=== PATIENT | female | born 1980 | race Caucasian/White ===

== ENCOUNTER 2016-09-02 16:37 | Emergency (ER) | payer MEDICAID ==
[2016-09-02 17:46] VITALS: BP 203/109
[2016-09-02] MEDS ORDERED: CLONIDINE HCL 0.1 MG TABLET PO ONE (17:52)
[2016-09-02] MEDS ORDERED: ACETAMINOPHEN 325 MG TABLET PO ONE (17:52)
--- NOTE | 2016-09-02 17:52 | ER Document Report ---
ED Medical Screen (RME) - General Stated Complaint: LIGHTHEADED,BLURRED VISION Time seen by provider: 17:50 Mode of Arrival: Wheelchair Information source: Patient Notes: 36-year-old female presents to ED for elevated blood pressure lightheadedness blurred vision numbness to hands and feet and left shoulder blade pain. She states this started this afternoon. She has a history of elevated blood pressure but has not started any kind of medication at this time. She states she has a appointment next week for her blood pressure. Hysterectomy. Discussed symptoms with Dr. Polanco will give 0.1 of clonidine and get blood work. I have greeted and performed a rapid initial assessment of this patient. A comprehensive ED assessment and evaluation of the patient, analysis of test results and completion of medical decision making process will be conducted by an additional ED providers. TRAVEL OUTSIDE OF THE [place] IN LAST 30 DAYS: No - Related Data Allergies/Adverse Reactions: acetaminophen [From Darvocet-N] Allergy (Verified 09/02/16 17:50) hydrocodone [From Vicodin] Allergy (Verified 09/02/16 17:50) propoxyphene [From Darvocet-N] Allergy (Verified 09/02/16 17:50) Past Medical History - Past Medical History Cardiac Medical History: Reports: Hx Hypertension Pulmonary Medical History: Reports: Hx Asthma Musculoskeltal Medical History: Reports Hx Fibromyalgia Past Surgical History: Reports: Hx Cholecystectomy, Hx Hysterectomy - Immunizations Hx Diphtheria, Pertussis, Tetanus Vaccination: No Physical Exam - Vital signs Vitals: Temp Pulse Resp BP Pulse Ox 99.5 F 84 16 203/109 H 99 09/02/16 17:45 09/02/16 17:45 09/02/16 17:45 09/02/16 17:45 09/02/16 17:45 Course - Vital Signs Vital signs: Temp Pulse Resp BP Pulse Ox 99.5 F 84 16 203/109 H 99 09/02/16 17:45 09/02/16 17:45 09/02/16 17:45 09/02/16 17:45 09/02/16 17:45
== END 2016-09-02 23:15 | disposition left against medical advice (07) ==
LOC: ER 16:37
DX: R42 Dizziness and giddiness (principal); H53.8 Other visual disturbances; R20.0 Anesthesia of skin; I10 Essential (primary) hypertension; Z90.710 Acquired absence of both cervix and uterus; Z88.6 Allergy status to analgesic agent; Z90.49 Acquired absence of other specified parts of digestive tract
CPT/HCPCS: 99281; J3490 ×2

== ENCOUNTER → 2017-01-30 | Outpatient (CLI) | payer MEDICAID ==
[2017-01-30 15:08] LABS: ANION GAP 10 (5-19); BLOOD UREA NITROGEN 10 mg/dL (7-20); CALCIUM 9.9 mg/dL (8.4-10.2); CARBON DIOXIDE 30 mmol/L (22-30); CHLORIDE 100 mmol/L (98-107); CREATININE RESULT 0.74 mg/dL (0.52-1.25); GLUCOSE 84 mg/dL (75-110); SODIUM 140.1 mmol/L (137-145)
== END ==
LOC: OD 13:05
PROVIDERS: ATTEND Internal Medicine Nephrology
DX: I10 Essential (primary) hypertension (principal); M79.7 Fibromyalgia; K52.9 Noninfective gastroenteritis and colitis, unspecified
CPT/HCPCS: 36415; 80048; 82382; 82570; 83835

== ENCOUNTER → 2017-02-21 | Outpatient (CLI) | payer MEDICARE, MEDICAID ==
[2017-02-21 12:13] LABS: ABSOLUTE BASOPHILS # (AUTO) 0.1 10^3/uL (0.0-0.2); ABSOLUTE EOSINOPHILS # (AUTO) 0.1 10^3/uL (0.0-0.6); ABSOLUTE LYMPHOCYTES (AUTO) 2.5 10^3/uL (0.5-4.7); ABSOLUTE MONOCYTES (AUTO) 0.3 10^3/uL (0.1-1.4); ABSOLUTE NEUT (AUTO) 5.3 10^3/uL (1.7-8.2); BASOPHILS % (AUTO) 0.8 % (0-2); EOSINOPHILS % (AUTO) 1.4 % (0-6); HEMATOCRIT 42.4 % (36.0-47.0); HGB HCT DIFFERENCE 2.6; LYMPHOCYTES % (AUTO) 30.2 % (13-45); MEAN CORPUSCULAR HEMOGLOBIN 33.5 pg (27.0-33.4); MEAN CORPUSCULAR HGB CONC 35.3 g/dL (32.0-36.0); MEAN CORPUSCULAR VOLUME 95 fl (80-97); MONOCYTES % (AUTO) 3.6 % (3-13); RED BLOOD COUNT 4.46 10^6/uL (3.72-5.28); RED CELL DISTRIBUTION WIDTH 13.3 % (11.5-14.0); WHITE BLOOD COUNT 8.3 10^3/uL (4.0-10.5)
[2017-02-21 12:30] LABS: APPEARANCE,URINE CLEAR; BILIRUBIN,URINE NEGATIVE (NEGATIVE); GLUCOSE, URINE NEGATIVE (NEGATIVE); KETONES,URINE NEGATIVE (NEGATIVE); LEUKOCYTE ESTERASE,URINE NEGATIVE (NEGATIVE); NITRITE,URINE NEGATIVE (NEGATIVE); PROTEIN,URINE NEGATIVE (NEGATIVE); URINE SPECIFIC GRAVITY 1.004; UROBILINOGEN,URINE NEGATIVE mg/dL (<2.0)
[2017-02-21 12:47] LABS: ANION GAP 13 (5-19); BLOOD UREA NITROGEN 18 mg/dL (7-20); CALCIUM 10.6 mg/dL (8.4-10.2); CARBON DIOXIDE 25 mmol/L (22-30); CHLORIDE 104 mmol/L (98-107); CREATININE RESULT 0.77 mg/dL (0.52-1.25); GLUCOSE 90 mg/dL (75-110); POTASSIUM 4.8 mmol/L (3.6-5.0); SODIUM 141.8 mmol/L (137-145)
[2017-02-26 08:36] LABS: ALDOSTERONE 21.8 ng/dL (0.0-30.0)
== END ==
LOC: OD 10:37
PROVIDERS: ATTEND Internal Medicine Nephrology
DX: I10 Essential (primary) hypertension (principal); M79.7 Fibromyalgia; K52.9 Noninfective gastroenteritis and colitis, unspecified
CPT/HCPCS: 36415; 80048; 81001; 82088; 84244; 85025; 86038

== ENCOUNTER 2017-10-13 10:39 | Emergency (ER) | payer MEDICARE, MEDICAID ==
[2017-10-13] MEDS ORDERED: ASPIRIN 81 MG TABLET, CHEWABLE PO ONE (11:25)
[2017-10-13 11:46] LABS: ABSOLUTE BASOPHILS # (AUTO) 0.1 10^3/uL (0.0-0.2); ABSOLUTE EOSINOPHILS # (AUTO) 0.1 10^3/uL (0.0-0.6); ABSOLUTE LYMPHOCYTES (AUTO) 2.2 10^3/uL (0.5-4.7); ABSOLUTE MONOCYTES (AUTO) 0.3 10^3/uL (0.1-1.4); ABSOLUTE NEUT (AUTO) 5.5 10^3/uL (1.7-8.2); EOSINOPHILS % (AUTO) 1.4 % (0-6); HEMATOCRIT 46.7 % (36.0-47.0); HEMOGLOBIN 16.2 g/dL (12.0-15.5); LYMPHOCYTES % (AUTO) 27.1 % (13-45); MEAN CORPUSCULAR HEMOGLOBIN 32.9 pg (27.0-33.4); MEAN CORPUSCULAR HGB CONC 34.8 g/dL (32.0-36.0); MEAN CORPUSCULAR VOLUME 95 fl (80-97); MONOCYTES % (AUTO) 4.2 % (3-13); PLATELET COUNT 299 10^3/uL (150-450); RED BLOOD COUNT 4.94 10^6/uL (3.72-5.28); RED CELL DISTRIBUTION WIDTH 13.6 % (11.5-14.0); SEGMENTED NEUTROPHILS % (AUTO) 66.3 % (42-78); TOTAL CELLS COUNTED % (AUTO) 100 %; WHITE BLOOD COUNT 8.2 10^3/uL (4.0-10.5)
[2017-10-13 12:07] LABS: ALANINE AMINOTRANSFERASE 42 U/L (9-52); ALKALINE PHOSPHATASE 49 U/L (38-126); ANION GAP 14 (5-19); ASPARTATE AMINO TRANSFERASE 27 U/L (14-36); BILIRUBIN,DIRECT 0.2 mg/dL (0.0-0.4); BILIRUBIN,TOTAL 0.2 mg/dL (0.2-1.3); BLOOD UREA NITROGEN 9 mg/dL (7-20); CALCIUM 10.2 mg/dL (8.4-10.2); CARBON DIOXIDE 28 mmol/L (22-30); CHLORIDE 102 mmol/L (98-107); CREATINE KINASE 39 U/L (30-135); GLUCOSE 97 mg/dL (75-110); POTASSIUM 4.2 mmol/L (3.6-5.0); SODIUM 143.7 mmol/L (137-145); TOTAL PROTEIN 7.8 g/dL (6.3-8.2)
[2017-10-13 12:17] LABS: CREATINE KINASE MB 0.49 ng/mL (<4.55)
[2017-10-13 12:19] LABS: TROPONIN I < 0.012 ng/mL
--- NOTE | 2017-10-13 12:43 | ER Document Report ---
ED General - General Chief Complaint: Palpitations Stated Complaint: CHEST TIGHTNESS, HEART RATE ISSUE Time Seen by Provider: 10/13/17 12:24 Notes: 37-year-old female with history of bradycardia and palpitations presented to the ER with palpitations and chest discomfort. At about 10 PM last night the patient began having some mild tightness and palpitations. She monitored her pulse and a got down to 29. She sees a disk recoater in [facility]. She has been cared for this before. The instructions were if the pulse gets below 30 she is to go and to be evaluated at the local ER. Patient takes clonidine. She denies fever chills cough or sore throat complaints of palpitations. Denies nausea diaphoresis or vomiting. Denies calf pain or leg swelling. He describes the palpitations as severe when it happened. TRAVEL OUTSIDE OF THE [place] IN LAST 30 DAYS: No - Related Data Allergies/Adverse Reactions: No Known Allergies Allergy (Unverified 10/13/17 11:21) Past Medical History - Social History Smoking Status: Current Every Day Smoker Chew tobacco use (# tins/day): No Frequency of alcohol use: None Drug Abuse: None Family History: Hypertension, Other - Renal failure Patient has suicidal ideation: No Patient has homicidal ideation: No - Past Medical History Cardiac Medical History: Reports: Hx Hypertension Pulmonary Medical History: Reports: Hx Asthma Renal/ Medical History: Denies: Hx Peritoneal Dialysis Musculoskeltal Medical History: Reports Hx Fibromyalgia Past Surgical History: Reports: Hx Cholecystectomy, Hx Hysterectomy - Immunizations Hx Diphtheria, Pertussis, Tetanus Vaccination: No Review of Systems - Review of Systems Constitutional: denies: Chills, Fever Cardiovascular: Chest pain, Palpitations, Dyspnea Gastrointestinal: denies: Abdominal pain, Nausea Genitourinary: denies: Dysuria Neurological/Psychological: denies: Headaches -: Yes All other systems reviewed and negative Physical Exam - Vital signs Vitals: Pulse BP Pulse Ox 41 L 178/114 H 97 10/13/17 11:20 10/13/17 11:20 10/13/17 11:20 - Notes Notes: GENERAL_APPEARANCE: well_nourished, alert, cooperative VITALS: reviewed, see vital signs table. HEAD: no_swelling\tenderness on the head. EYES: PERRL, EOMI, conjunctiva_clear. NOSE: no_nasal_discharge. MOUTH: (-)decreased moisture. THROAT: no_throat_inflammation, no_airway_obstruction. no_lymphadenopathy NECK: supple, no_neck_tenderness, (-)thyromegaly. BACK: no_back_tenderness. CHEST_WALL: no_chest_tenderness. LUNGS: no_wheezing, no_rales, no_rhonchi, (-)accessory muscle use, good air exchange bilateral. HEART: normal_rate, normal_rhythm, normal_S1, normal_S2, (-)S3, (-)S4, no_ murmur, no_rub. ABDOMEN: normal_BS, soft, no_abd_tenderness, (-)guarding, (-)rebound, no_ organomegaly, no_abd_masses. EXTREMITIES: good pulses in all_extremities, no_swelling\tenderness in the extremities, no_edema. SKIN: warm, dry, good_color, no_rash. MENTAL_STATUS: speech_clear, oriented_X_3, anxious_affect, responds_ appropriately to questions. NEURO: Neg Motor or Sensory Deficits on exam, CN 2-12 intact, DTR 2+ symmetric x 4, No cerbellar signs Course - Re-evaluation Re-evalutation: 10/13/17 15:34 The patient has a history of bradycardia. She has seen a doctor in [facility]. He is new to the area and wanted a cardiology referral. The patient is been monitored here she does have occasional PVCs and she does drop. She has not dropped into the 20s for us. Blood pressure has been stable. Actually more on the high side. Patient otherwise states she is feeling of a I will give her referral to cardiology. Dr. Garcia. The patient had 2 serial troponins which were negative. No acute ST changes or anything to suggest ischemia. This with a clinical history of this her risk for major adverse cardiac event is low. I did tell her if she begins feeling poorly again or cannot get in with a reasonable amount of time can return to the ER to be reevaluated. - Vital Signs Vital signs: Temp Pulse Resp BP Pulse Ox 41 L 17 168/108 H 100 10/13/17 11:20 10/13/17 14:01 10/13/17 14:00 10/13/17 14:01 - Laboratory Result Diagrams: 10/13/17 11:33 10/13/17 11:33 Laboratory results interpreted by me: 10/13/17 11:33 Hgb 16.2 H - EKG Interpretation by Me EKG shows normal: Sinus rhythm Rhythm: NSR When compared to previous EKG there are: Previous EKG unavailable Additional EKG results interpreted by me: 10/13/17 12:43 Twelve-lead EKG shows sinus rhythm at [address] abnormalitiesno old immediately available for comparison Discharge - Discharge Clinical Impression: Bradycardia, Palpitations Condition: Good Disposition: HOME, SELF-CARE Instructions: Palpitations (Irregular or Rapid Heartrate) ([facility]) Referrals: MEREDITH EAGLE MD [Primary Care Provider] - Follow up as needed RITA GARCIA MD [ACTIVE STAFF] - Follow up in 3-5 days (Call for an appointment today)
--- NOTE | 2017-10-13 12:58 | EKG REPORT ---
SEVERITY:- NORMAL ECG - SINUS RHYTHM : Confirmed by: New Hernandez 13-Oct-2017 12:58:20
[2017-10-13 15:59] VITALS: BP 161/93
== END 2017-10-13 16:05 | disposition home or self-care (01) ==
LOC: ER 10:39
DX: R00.1 Bradycardia, unspecified (principal); R00.2 Palpitations; R07.9 Chest pain, unspecified; F17.200 Nicotine dependence, unspecified, uncomplicated; I10 Essential (primary) hypertension; Z90.49 Acquired absence of other specified parts of digestive tract; Z90.710 Acquired absence of both cervix and uterus
CPT/HCPCS: 93005; 99285; 36415; 82553; 82550; 85025; 80053; 84484; 93010; A9270

== ENCOUNTER 2018-01-03 12:38 | Emergency (ER) | payer MEDICARE, MEDICAID ==
[2018-01-03] MEDS ORDERED: IPRATROPIUM/ALBUTEROL 0.5-2.5 MG/3 ML AMPUL NEB ONE (13:40)
[2018-01-03] MEDS ORDERED: IBUPROFEN 600 MG TABLET PO ONE (13:40)
[2018-01-03] MEDS ORDERED: ACETAMINOPHEN 325 MG TABLET PO ONE (13:40)
[2018-01-03 14:11] LABS: ABSOLUTE BASOPHILS # (AUTO) 0.1 10^3/uL (0.0-0.2); ABSOLUTE EOSINOPHILS # (AUTO) 0.1 10^3/uL (0.0-0.6); ABSOLUTE LYMPHOCYTES (AUTO) 2.6 10^3/uL (0.5-4.7); ABSOLUTE MONOCYTES (AUTO) 0.3 10^3/uL (0.1-1.4); ABSOLUTE NEUT (AUTO) 6.5 10^3/uL (1.7-8.2); BASOPHILS % (AUTO) 0.8 % (0-2); EOSINOPHILS % (AUTO) 1.3 % (0-6); HEMOGLOBIN 12.9 g/dL (12.0-15.5); LYMPHOCYTES % (AUTO) 27.2 % (13-45); MEAN CORPUSCULAR HEMOGLOBIN 32.9 pg (27.0-33.4); MEAN CORPUSCULAR HGB CONC 34.9 g/dL (32.0-36.0); MEAN CORPUSCULAR VOLUME 94 fl (80-97); MONOCYTES % (AUTO) 3.1 % (3-13); PLATELET COUNT 267 10^3/uL (150-450); RED BLOOD COUNT 3.93 10^6/uL (3.72-5.28); RED CELL DISTRIBUTION WIDTH 13.3 % (11.5-14.0); SEGMENTED NEUTROPHILS % (AUTO) 67.6 % (42-78); TOTAL CELLS COUNTED % (AUTO) 100 %; WHITE BLOOD COUNT 9.7 10^3/uL (4.0-10.5)
--- NOTE | 2018-01-03 14:23 | RADIOLOGY REPORT (SQ) ---
EXAM DESCRIPTION: CHEST 2 VIEWS COMPLETED DATE/TIME: 01/03/2018 2:07 pm REASON FOR STUDY: left arm cp COMPARISON: 03/28/2016. EXAM PARAMETERS: NUMBER OF VIEWS: two views TECHNIQUE: Digital Frontal and Lateral radiographic views of the chest acquired. RADIATION DOSE: NA LIMITATIONS: none FINDINGS: LUNGS AND PLEURA: No acute infiltrates or effusions. MEDIASTINUM AND HILAR STRUCTURES: No masses or contour abnormalities. HEART AND VASCULAR STRUCTURES: Heart is normal with normal pulmonary vasculature. BONES: No acute findings. HARDWARE: None in the chest. OTHER: No other significant finding. IMPRESSION: NO ACUTE DISEASE. TECHNICAL DOCUMENTATION: JOB ID: [id number] SC-69 2010 [employer]- All Rights Reserved Reading location - IP/workstation name: [email or web address]
[2018-01-03 14:30] LABS: ANION GAP 14 (5-19); BLOOD UREA NITROGEN 8 mg/dL (7-20); CALCIUM 9.3 mg/dL (8.4-10.2); CARBON DIOXIDE 24 mmol/L (22-30); CHLORIDE 102 mmol/L (98-107); GLUCOSE 84 mg/dL (75-110); POTASSIUM 3.7 mmol/L (3.6-5.0); SODIUM 140.2 mmol/L (137-145)
--- NOTE | 2018-01-03 14:30 | RADIOLOGY REPORT (SQ) ---
EXAM DESCRIPTION: CERV SP 3 VIEW OR LESS COMPLETED DATE/TIME: 01/03/2018 2:07 pm REASON FOR STUDY: left arm COMPARISON: None. NUMBER OF VIEWS: Four views TECHNIQUE: AP, lateral and odontoid radiographic images acquired of the cervical spine. LIMITATIONS: None. FINDINGS: MINERALIZATION: Normal. ALIGNMENT: There is straightening of the cervical spine, otherwise alignment is unremarkable. VERTEBRAE: Vertebral bodies of normal height. DISCS: No significant disc space narrowing. No large osteophytes. HARDWARE: None in the spine. SOFT TISSUES: No masses or calcifications. Lung apices clear. OTHER: No other significant finding. IMPRESSION: Straightening of the cervical spine, otherwise unremarkable study. TECHNICAL DOCUMENTATION: JOB ID: [id number] [employer] All Rights Reserved Reading location - IP/workstation name: [email or web address]
--- NOTE | 2018-01-03 15:26 | ER Document Report ---
ED General - General Chief Complaint: Chest Pain Stated Complaint: SHORTNESS OF BREATH Time Seen by Provider: 01/03/18 13:30 TRAVEL OUTSIDE OF THE [place] IN LAST 30 DAYS: No - HPI Patient complains to provider of: Chest pain shortness of breath left arm pain Notes: Patient coming in for evaluation chest pain shortness of breath left arm pain. Patient states started early this morning around 7:00. Patient states left arm pain and numbness started just prior to arrival. 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 Denies any trauma - Related Data Allergies/Adverse Reactions: No Known Allergies Allergy (Verified 01/03/18 12:38) Past Medical History - Social History Smoking Status: Current Every Day Smoker Chew tobacco use (# tins/day): No Frequency of alcohol use: None Drug Abuse: None Family History: Hypertension, Other - Renal failure Patient has suicidal ideation: No Patient has homicidal ideation: No - Past Medical History Cardiac Medical History: Reports: Hx Hypertension Pulmonary Medical History: Reports: Hx Asthma Renal/ Medical History: Denies: Hx Peritoneal Dialysis Musculoskeletal Medical History: Reports Hx Fibromyalgia Past Surgical History: Reports: Hx Cholecystectomy, Hx Hysterectomy - Immunizations Hx Diphtheria, Pertussis, Tetanus Vaccination: No Review of Systems - Review of Systems Constitutional: No symptoms reported EENT: No symptoms reported Cardiovascular: Chest pain - Arm pain shortness of breath Respiratory: No symptoms reported Gastrointestinal: No symptoms reported Genitourinary: No symptoms reported Female Genitourinary: No symptoms reported Musculoskeletal: No symptoms reported Skin: No symptoms reported Hematologic/Lymphatic: No symptoms reported Neurological/Psychological: No symptoms reported -: Yes All other systems reviewed and negative Physical Exam - Vital signs Vitals: Temp Pulse Resp BP Pulse Ox 99.4 F 92 16 123/83 98 01/03/18 13:02 01/03/18 13:02 01/03/18 13:02 01/03/18 13:02 01/03/18 13:02 Interpretation: Normal - General General appearance: Appears well, Alert - HEENT Head: Normocephalic, Atraumatic Eyes: Normal Pupils: PERRL - Respiratory Respiratory status: No respiratory distress Chest status: Tender - Tenderness to palpation of the anterior chest wall reproduces patient's pain Breath sounds: Normal Chest palpation: Normal - Cardiovascular Rhythm: Regular Heart sounds: Normal auscultation Murmur: No - Abdominal Inspection: Normal Distension: No distension Bowel sounds: Normal Tenderness: Nontender Organomegaly: No organomegaly - Back Back: Normal, Nontender - Extremities General upper extremity: Normal inspection, Nontender, Normal color, Normal ROM , Normal temperature General lower extremity: Normal inspection, Nontender, Normal color, Normal ROM , Normal temperature, Normal weight bearing. No: Shonna's sign - Neurological Neuro grossly intact: Yes Cognition: Normal Orientation: AAOx4 [place] Coma Scale Eye Opening: Spontaneous Rita Coma Scale Verbal: Oriented [place] Coma Scale Motor: Obeys Commands Rita Coma Scale Total: 15 Speech: Normal Motor strength normal: LUE, RUE, LLE, RLE Sensory: Normal - Psychological Associated symptoms: Normal affect, Normal mood - Skin Skin Temperature: Warm Skin Moisture: Dry Skin Color: Normal Course - Re-evaluation Re-evalutation: 01/03/18 20:16 The patient has atypical chest pain as the patient's chest pain is not suggestive of pulmonary embolus, cardiac ischemia, aortic dissection, or other serious etiology. Given the extremely low risk of these diagnoses further testing and evaluation for these possibilities does not appear to be indicated at this time. The patient has been instructed to return if the symptoms worsen or change in any way. - Vital Signs Vital signs: Temp Pulse Resp BP Pulse Ox 99.4 F 69 18 125/74 100 01/03/18 13:02 01/03/18 15:36 01/03/18 15:36 01/03/18 15:36 01/03/18 15:36 - Laboratory Result Diagrams: 01/03/18 13:50 01/03/18 13:50 Discharge - Discharge Clinical Impression: Smoking, Chest wall pain, dyspnea, Numbness Condition: Good Disposition: HOME, SELF-CARE Instructions: Anti-Inflammatory Medication ([facility]), Chest Wall Pain ([facility]), Dyspnea, Nonspecific ([facility]), Numbness or Paresthesia ([facility]), Stop Smoking ([facility]) Additional Instructions: Your laboratory studies today show no signs of cardiac ischemia signs of blood clots and lung are no longer signs of the infection. Chest x-ray is negative for any signs of pneumonia pneumothorax rib fractures. Your x-ray of your neck shows some signs of possible muscle spasms which can cause some numbness and tingling to go down one arm or the other or sometimes both. We recommend 4 year chest pain to take Tylenol Motrin together 600 mg of Motrin along with 650 mg of Tylenol 3 times a day. This will also help out with any neck pain should also aid in any muscle spasms that you are having. For shortness of breath would recommend to stop smoking. We will give you an inhaler here in the ER 2 puffs every 4 hours for any shortness of breath. Follow-up with your primary care physician return to ER symptoms worsen. Prescriptions: Ibuprofen [Motrin 600 mg Tablet] 600 mg PO Q8 PRN #21 tablet PRN Reason: Referrals: RITA GARCIA MD [ACTIVE STAFF] - Follow up as needed
[2018-01-03] MEDS ORDERED: ALBUTEROL SULFATE HFA (90 MCG/PUFF) 8 GM MDI (1 MDI/ER DISP) IH ONE (15:33)
[2018-01-03 15:38] VITALS: BP 125/74
--- NOTE | 2018-01-03 21:56 | EKG REPORT ---
SEVERITY:- BORDERLINE ECG - SINUS RHYTHM PROBABLE LEFT ATRIAL ABNORMALITY : Confirmed by: New Hernandez 03-Jan-2018 21:56:22
== END 2018-01-03 15:38 | disposition home or self-care (01) ==
LOC: ER 12:38
DX: R07.9 Chest pain, unspecified (principal); R06.00 Dyspnea, unspecified; R20.0 Anesthesia of skin; R06.02 Shortness of breath; M79.602 Pain in left arm; F17.200 Nicotine dependence, unspecified, uncomplicated; I10 Essential (primary) hypertension; Z90.49 Acquired absence of other specified parts of digestive tract; Z90.710 Acquired absence of both cervix and uterus
CPT/HCPCS: 93005; 94640; 99285; 36415; 84703; 85025; 80048; 84484; 85379; 72040; 71046; 93010; A9270 ×3; J3490; J7620

== ENCOUNTER 2018-07-05 12:36 | Emergency (ER) | payer MEDICARE, MEDICAID ==
[2018-07-05] MEDS ORDERED: ASPIRIN 325 MG TABLET PO ONE (13:09)
--- NOTE | 2018-07-05 13:11 | ER Document Report ---
ED Medical Screen (RME) - General Chief Complaint: Cold Symptoms Stated Complaint: SHORTNESS OF BREATH Time Seen by Provider: 07/05/18 13:08 Mode of Arrival: Ambulatory Information source: Patient TRAVEL OUTSIDE OF THE [place] IN LAST 30 DAYS: No - HPI Patient complains to provider of: Cough; CP , SOB Onset: Yesterday - pt with 1-2 day h/o CP, cough , and SOB - Related Data Allergies/Adverse Reactions: No Known Allergies Allergy (Verified 01/03/18 12:38) Past Medical History - Social History Chew tobacco use (# tins/day): No Frequency of alcohol use: None Drug Abuse: None - Past Medical History Cardiac Medical History: Reports: Hx Hypertension Pulmonary Medical History: Reports: Hx Asthma Renal/ Medical History: Denies: Hx Peritoneal Dialysis Musculoskeltal Medical History: Reports Hx Fibromyalgia Past Surgical History: Reports: Hx Cholecystectomy, Hx Hysterectomy - Immunizations Hx Diphtheria, Pertussis, Tetanus Vaccination: No Physical Exam - Vital signs Vitals: Temp Pulse Resp BP Pulse Ox 98.4 F 89 16 146/108 H 100 07/05/18 12:53 07/05/18 12:53 07/05/18 12:53 07/05/18 12:53 07/05/18 12:53 Course - Vital Signs Vital signs: Temp Pulse Resp BP Pulse Ox 98.4 F 89 16 146/108 H 100 07/05/18 12:53 07/05/18 12:53 07/05/18 12:53 07/05/18 12:53 07/05/18 12:53 Doctor's Discharge - Discharge Referrals: MEREDITH EAGLE MD [Primary Care Provider] - Follow up as needed
[2018-07-05 13:55] LABS: ABSOLUTE BASOPHILS # (AUTO) 0.1 10^3/uL (0.0-0.2); ABSOLUTE EOSINOPHILS # (AUTO) 0.1 10^3/uL (0.0-0.6); ABSOLUTE LYMPHOCYTES (AUTO) 2.9 10^3/uL (0.5-4.7); ABSOLUTE MONOCYTES (AUTO) 0.5 10^3/uL (0.1-1.4); ABSOLUTE NEUT (AUTO) 4.7 10^3/uL (1.7-8.2); EOSINOPHILS % (AUTO) 1.3 % (0-6); LYMPHOCYTES % (AUTO) 35.1 % (13-45); MEAN CORPUSCULAR HEMOGLOBIN 32.2 pg (27.0-33.4); MEAN CORPUSCULAR HGB CONC 34.2 g/dL (32.0-36.0); MEAN CORPUSCULAR VOLUME 94 fl (80-97); MONOCYTES % (AUTO) 6.2 % (3-13); PLATELET COUNT 367 10^3/uL (150-450); RED BLOOD COUNT 4.36 10^6/uL (3.72-5.28); RED CELL DISTRIBUTION WIDTH 13.3 % (11.5-14.0); SEGMENTED NEUTROPHILS % (AUTO) 56.4 % (42-78); TOTAL CELLS COUNTED % (AUTO) 100 %; WHITE BLOOD COUNT 8.4 10^3/uL (4.0-10.5)
[2018-07-05 13:57] LABS: ALANINE AMINOTRANSFERASE 27 U/L (9-52); ALBUMIN 4.9 g/dL (3.5-5.0); ALKALINE PHOSPHATASE 55 U/L (38-126); ANION GAP 10 (5-19); ASPARTATE AMINO TRANSFERASE 19 U/L (14-36); BILIRUBIN,DIRECT 0.2 mg/dL (0.0-0.4); BILIRUBIN,TOTAL 0.7 mg/dL (0.2-1.3); BLOOD UREA NITROGEN 8 mg/dL (7-20); CALCIUM 10.2 mg/dL (8.4-10.2); CARBON DIOXIDE 27 mmol/L (22-30); CHLORIDE 103 mmol/L (98-107); CREATINE KINASE 49 U/L (30-135); GLUCOSE 76 mg/dL (75-110); POTASSIUM 4.5 mmol/L (3.6-5.0); TOTAL PROTEIN 7.4 g/dL (6.3-8.2)
[2018-07-05 14:01] LABS: A TYPE INFLUENZA AG NEGATIVE (NEGATIVE); B INFLUENZA AG NEGATIVE (NEGATIVE)
[2018-07-05 14:09] LABS: CREATINE KINASE MB 0.48 ng/mL (<4.55)
--- NOTE | 2018-07-05 14:09 | RADIOLOGY REPORT (SQ) ---
EXAM DESCRIPTION: CHEST 2 VIEWS COMPLETED DATE/TIME: 07/05/2018 1:59 pm REASON FOR STUDY: CP COMPARISON: 01/03/2018. EXAM PARAMETERS: NUMBER OF VIEWS: two views TECHNIQUE: Digital Frontal and Lateral radiographic views of the chest acquired. RADIATION DOSE: NA LIMITATIONS: none FINDINGS: LUNGS AND PLEURA: No opacities, masses or pneumothorax. No pleural effusion. MEDIASTINUM AND HILAR STRUCTURES: No masses or contour abnormalities. HEART AND VASCULAR STRUCTURES: Heart normal size. No evidence for failure. BONES: No acute findings. HARDWARE: Clips in the upper abdomen. OTHER: No other significant finding. IMPRESSION: NO ACUTE RADIOGRAPHIC FINDING IN THE CHEST. TECHNICAL DOCUMENTATION: JOB ID: [id number] [employer]- All Rights Reserved Reading location - IP/workstation name: [email or web address]
[2018-07-05 14:12] LABS: TROPONIN I < 0.012 ng/mL
--- NOTE | 2018-07-05 16:32 | ER Document Report ---
ED General - General Chief Complaint: Cold Symptoms Stated Complaint: SHORTNESS OF BREATH Time Seen by Provider: 07/05/18 13:08 Mode of Arrival: Ambulatory Notes: 38 female with hypertension and pots presents to the emergency department for shortness of breath and chest wall pain. Per patient symptoms have been going on since this morning. Chest pain is reproducible with deep breathing and coughing. Patient is also complaining of cough, flulike symptoms, and general malaise. Patient denies fever, chills, nausea, vomiting, diarrhea. Patient is being followed by cardiology here in [place] and states she has had 2 echocardiograms in 2018 which were "normalISH". Patient states that there are sick contacts in her house and all of her children have upper respiratory illnesses. Patient has no other complaints TRAVEL OUTSIDE OF THE [place] IN LAST 30 DAYS: No - Related Data Allergies/Adverse Reactions: No Known Allergies Allergy (Verified 01/03/18 12:38) Past Medical History - General Information source: Patient - Social History Smoking Status: Current Every Day Smoker Chew tobacco use (# tins/day): No Frequency of alcohol use: None Drug Abuse: None Family History: Hypertension, Other - Renal failure Patient has suicidal ideation: No Patient has homicidal ideation: No - Past Medical History Cardiac Medical History: Reports: Hx Hypertension Pulmonary Medical History: Reports: Hx Asthma Renal/ Medical History: Denies: Hx Peritoneal Dialysis Musculoskeletal Medical History: Reports Hx Fibromyalgia Past Surgical History: Reports: Hx Cholecystectomy, Hx Gynecologic Surgery, Hx Hysterectomy - Immunizations Hx Diphtheria, Pertussis, Tetanus Vaccination: No Review of Systems - Review of Systems Constitutional: See HPI EENT: See HPI Cardiovascular: See HPI Respiratory: See HPI Gastrointestinal: See HPI Genitourinary: No symptoms reported Female Genitourinary: No symptoms reported Musculoskeletal: No symptoms reported Skin: No symptoms reported Hematologic/Lymphatic: No symptoms reported Neurological/Psychological: No symptoms reported Physical Exam - Vital signs Vitals: Temp Pulse Resp BP Pulse Ox 98.4 F 89 16 146/108 H 100 07/05/18 12:53 07/05/18 12:53 07/05/18 12:53 07/05/18 12:53 07/05/18 12:53 - Notes Notes: PHYSICAL EXAMINATION: Reviewed vital signs and charting by RN GENERAL: Well-appearing, well-nourished and in no acute distress. HEAD: Atraumatic, normocephalic. EYES: Pupils equal round extraocular movements intact, sclera anicteric, conjunctiva are normal. ENT: nares patent, oropharynx clear without exudates. Moist mucous membranes. NECK: Normal range of motion, supple without lymphadenopathy LUNGS: No respiratory distress. No rales or rhonchi. Bilateral end expiratory wheezing lung bases HEART: Regular rate and rhythm without murmurs ABDOMEN: Soft, nontender, normoactive bowel sounds. No guarding, no rebound. No masses appreciated. EXTREMITIES: Normal range of motion, no pitting or edema. No cyanosis. NEUROLOGICAL: Face symmetric. Tongue protrudes midline. Extraocular motions intact. PSYCH: Normal mood, normal affect. SKIN: Warm, Dry, normal turgor, no rashes or lesions noted. Course - Re-evaluation Re-evalutation: 07/05/18 16:36 Well-appearing 38 female presents for chest wall pain that is reproducible on deep breathing and cough. Cardiac workup was performed and is negative. Patient does have end expiratory wheezing with history of asthma and is an every day smoker. Troponin was negative. I have very low concern for any concerning conditions like aortic dissection, pulmonary embolism, or a CS. Patient symptoms most likely represent an upper respiratory infection and her frequent cough is the source of her chest pain. EKG was normal. Chest x-ray was normal. At this point patient is stable to discharge home with strict return precautions. - Vital Signs Vital signs: Temp Pulse Resp BP Pulse Ox 98.4 F 89 16 146/108 H 100 07/05/18 12:53 07/05/18 12:53 07/05/18 12:53 07/05/18 12:53 07/05/18 12:53 - Laboratory Result Diagrams: 07/05/18 13:35 07/05/18 13:35 Discharge - Discharge Clinical Impression: Chest wall pain, Shortness of breath, Cough Condition: Good Disposition: HOME, SELF-CARE Instructions: Anti-Inflammatory Medication ([facility]), Chest Wall Pain ([facility]) Additional Instructions: You are seen in the emergency department this afternoon for shortness of breath and chest pain. It is reassuring that your chest pain was reproducible with coughing and deep breathing. We did a cardiac workup which was completely normal, this is very reassuring. Most likely her symptoms are related to a viral illness as you stated your kids are all sick in the house. We did notice some wheezing in your lower lungs so when you get home please use your inhaler as directed. If you develop severe chest pain that is unremitting not related to deep breathing, have an impending sense of doom, diaphoresis associated with the chest pain, you pass out, or have any other concerning symptoms please immediately return to the emergency department. Referrals: MEREDITH EAGLE MD [NO LOCAL MD] - Follow up as needed
[2018-07-05 17:04] VITALS: BP 134/73
--- NOTE | 2018-07-05 23:46 | EKG REPORT ---
SEVERITY:- BORDERLINE ECG - SINUS RHYTHM PROBABLE LEFT ATRIAL ABNORMALITY : Confirmed by: New Hernandez 05-Jul-2018 23:45:55
== END 2018-07-05 17:01 | disposition home or self-care (01) ==
LOC: ER 12:36
DX: R07.89 Other chest pain (principal); R06.02 Shortness of breath; R05 Cough; I10 Essential (primary) hypertension; F17.200 Nicotine dependence, unspecified, uncomplicated; Z90.49 Acquired absence of other specified parts of digestive tract; Z90.710 Acquired absence of both cervix and uterus
CPT/HCPCS: 93005; 99285; 36415; 82553; 82550; 85025; 80053; 84484; 87804; 71046; 93010; A9270

== ENCOUNTER → 2018-11-30 | Outpatient (CLI) | payer MEDICARE, MEDICAID ==
--- NOTE | 2018-11-30 16:11 | WOMENS IMAGING REPORT ---
EXAM DESCRIPTION: BILAT SCREENING MAMMO W/CAD COMPLETED DATE/TIME: 11/30/2018 2:41 pm REASON FOR STUDY: Z12.31 ROUTINE BILATERAL [id number] SCREEN MAMMOGRAM FOR MALIGNANT NE OPLASM OF MATTIE COMPARISON: Baseline study EXAM PARAMETERS: Standard craniocaudal and mediolateral oblique views of each breast recorded using digital acquisition. Read with the assistance of CAD. .[facility] - [place] [place] [employer] Market Development Specialist Version 9.2 LIMITATIONS: None. FINDINGS: RIGHT BREAST MASSES: No suspicious masses. CALCIFICATIONS: No new or suspicious calcifications. ARCHITECTURAL DISTORTION: None. DEVELOPING DENSITY: None. ASYMMETRY: None noted. OTHER: No other significant findings. LEFT BREAST MASSES: No suspicious masses. CALCIFICATIONS: No new or suspicious calcifications. ARCHITECTURAL DISTORTION: None. DEVELOPING DENSITY: None. ASYMMETRY: Asymmetrically dense tissue is present in the left breast lower inner quadrant a far upper outer quadrant. Further evaluation with cone compression mammograms lower inner quadrant and far up per outer quadrant CC and MLO orientations, left whole breast 90 mediolateral view, left breast ultr asound. OTHER: No other significant findings. IMPRESSION: No mammographic evidence for malignancy right breast. Asymmetrically dense tissue in the left lower inner quadrant and far upper outer quadrant for which a dditional diagnostic mammography and ultrasound is recommended 0 Incomplete: Needs Additional Imaging Evaluation and/or prior Mammograms for Comparison. BREAST DENSITY: b. There are scattered areas of fibroglandular density. BIRAD: ASSESSMENT: 0 Incomplete: Needs Additional Imaging Evaluation and/or prior Mammograms for C omparison. RECOMMENDATION: RECOMMENDED FOLLOW-UP: Additional left breast diagnostic mammograms and ultrasound The patient will be contacted for additional imaging. COMMENT: The patient has been notified of the results by letter per MQSA requirements. Additional no tification policies are in place for contacting patient with suspicious or incomplete findings. Quality ID #225: The [employer] recommends an annual screening mammogram for women aged 40 years or over. This facility utilizes a reminder system to ensure that all patients receive reminder letters, and/or direct phone calls for appointments. This includes reminders for routine scr eening mammograms, diagnostic mammograms, or other Breast Imaging Interventions when appropriate. Th is patient will be placed in the appropriate reminder system. TECHNICAL DOCUMENTATION: FINDING NUMBER: (1) ASSESSMENT: (1) JOB ID: [id number] [employer]- All Rights Reserved Reading location - IP/workstation name: [email or web address]
== END ==
LOC: WI 14:09
PROVIDERS: ATTEND Nurse Practitioner Primary Care
DX: Z12.31 Encounter for screening mammogram for malignant neoplasm of breast (principal); R92.2 Inconclusive mammogram
CPT/HCPCS: 77067

== ENCOUNTER → 2018-12-08 | Outpatient (CLI) | payer MEDICARE, MEDICAID ==
--- NOTE | 2018-12-08 14:29 | WOMENS IMAGING REPORT ---
EXAM DESCRIPTION: LEFT DIAGNOSTIC MAMMO W/CAD; U/S BREAST UNILAT LIMITED COMPLETED DATE/TIME: 12/08/2018 12:34 pm; 12/08/2018 1:15 pm REASON FOR STUDY: N63.24 UNSPECIFIED LUMP IN THE LEFT BREAST, LOWER INNER QUADRANT; LT BREAST N63.24 N63.24 UNSPECIFIED LUMP IN THE LEFT BREAST, LOWER INNER QUAD COMPARISON: Mammograms 11/30/2018 EXAM PARAMETERS: Cone compression craniocaudal and mediolateral oblique images of the left breast re corded with digital acquisition. Left whole breast 90 mediolateral view. Cone compression in the mediolateral view in the upper and lower half left breast. Left breast ultrasound was also performed. Read with the assistance of CAD. .[facility] - [employer] Clerk Version 9.2 LIMITATIONS: None. FINDINGS: BREAST LATERALITY: Left MASSES: No suspicious masses. CALCIFICATIONS: No new or suspicious calcifications. ARCHITECTURAL DISTORTION: None. DEVELOPING DENSITY: None. ASYMMETRY: None noted. OTHER: No other significant findings. Left breast ultrasound: Ultrasound of the lower inner quadrant left breast and upper outer quadrant left breast was performed . No solid nodules. No worrisome acoustic absorption. Benign 3 mm breast cysts at the 1 o'clock an d 3 o'clock position left breast. IMPRESSION: No mammographic or sonographic evidence for malignancy left breast BREAST DENSITY: b. There are scattered areas of fibroglandular density. BIRAD: ASSESSMENT: 2 Benign findings. RECOMMENDATION: RECOMMENDED FOLLOW UP: Please continue yearly bilateral screening mammography/tomosy nthesis in November 2019 SPECIFIC INTERVENTION/IMAGING/CONSULTATION RECOMMENDED:No additional intervention/ imaging/consultati on needed at this time. COMMUNICATION:Patient notified by letter COMMENT: The patient has been notified of the results by letter per MQSA requirements. Additional no tification policies are in place for contacting patient with suspicious or incomplete findings. Quality ID #225: The [employer] recommends an annual screening mammogram for women aged 40 years or over. This facility utilizes a reminder system to ensure that all patients receive reminder letters, and/or direct phone calls for appointments. This includes reminders for routine scr eening mammograms, diagnostic mammograms, or other Breast Imaging Interventions when appropriate. Th is patient will be placed in the appropriate reminder system. TECHNICAL DOCUMENTATION: FINDING NUMBER: (1) ASSESSMENT: (1) JOB ID: [id number] [employer]- All Rights Reserved Reading location - IP/workstation name: [email or web address]
--- NOTE | 2018-12-08 14:29 | WOMENS IMAGING REPORT ---
EXAM DESCRIPTION: LEFT DIAGNOSTIC MAMMO W/CAD; U/S BREAST UNILAT LIMITED COMPLETED DATE/TIME: 12/08/2018 12:34 pm; 12/08/2018 1:15 pm REASON FOR STUDY: N63.24 UNSPECIFIED LUMP IN THE LEFT BREAST, LOWER INNER QUADRANT; LT BREAST N63.24 N63.24 UNSPECIFIED LUMP IN THE LEFT BREAST, LOWER INNER QUAD COMPARISON: Mammograms 11/30/2018 EXAM PARAMETERS: Cone compression craniocaudal and mediolateral oblique images of the left breast re corded with digital acquisition. Left whole breast 90 mediolateral view. Cone compression in the mediolateral view in the upper and lower half left breast. Left breast ultrasound was also performed. Read with the assistance of CAD. .[facility] - [employer] Console Operator Track Version 9.2 LIMITATIONS: None. FINDINGS: BREAST LATERALITY: Left MASSES: No suspicious masses. CALCIFICATIONS: No new or suspicious calcifications. ARCHITECTURAL DISTORTION: None. DEVELOPING DENSITY: None. ASYMMETRY: None noted. OTHER: No other significant findings. Left breast ultrasound: Ultrasound of the lower inner quadrant left breast and upper outer quadrant left breast was performed . No solid nodules. No worrisome acoustic absorption. Benign 3 mm breast cysts at the 1 o'clock an d 3 o'clock position left breast. IMPRESSION: No mammographic or sonographic evidence for malignancy left breast BREAST DENSITY: b. There are scattered areas of fibroglandular density. BIRAD: ASSESSMENT: 2 Benign findings. RECOMMENDATION: RECOMMENDED FOLLOW UP: Please continue yearly bilateral screening mammography/tomosy nthesis in November 2019 SPECIFIC INTERVENTION/IMAGING/CONSULTATION RECOMMENDED:No additional intervention/ imaging/consultati on needed at this time. COMMUNICATION:Patient notified by letter COMMENT: The patient has been notified of the results by letter per MQSA requirements. Additional no tification policies are in place for contacting patient with suspicious or incomplete findings. Quality ID #225: The [employer] recommends an annual screening mammogram for women aged 40 years or over. This facility utilizes a reminder system to ensure that all patients receive reminder letters, and/or direct phone calls for appointments. This includes reminders for routine scr eening mammograms, diagnostic mammograms, or other Breast Imaging Interventions when appropriate. Th is patient will be placed in the appropriate reminder system. TECHNICAL DOCUMENTATION: FINDING NUMBER: (1) ASSESSMENT: (1) JOB ID: [id number] [employer]- All Rights Reserved Reading location - IP/workstation name: [email or web address]
== END ==
LOC: WI 12:15
PROVIDERS: ATTEND Nurse Practitioner Primary Care
DX: N60.02 Solitary cyst of left breast (principal)
CPT/HCPCS: 76642

== ENCOUNTER → 2019-07-15 | Outpatient (CLI) | payer MEDICARE, MEDICAID ==
--- NOTE | 2019-07-16 10:29 | RADIOLOGY REPORT (SQ) ---
EXAM DESCRIPTION: MRI LUMBAR SPINE WITHOUT COMPLETED DATE/TIME: 07/15/2019 9:55 pm REASON FOR STUDY: M51.36 OTHER INTERVERTEBRAL DISC DEGENERATION, LUMBAR REGION M51.36 OTHER INTERVE RTEBRAL DISC DEGENERATION, LUMBAR REGION COMPARISON: None. TECHNIQUE: Sagittal and Axial imaging includes T1, T2, STIR and gradient echo sequences. Coronal T2/ HASTE imaging. LIMITATIONS: None. FINDINGS: VISUALIZED UPPER ABDOMEN: No acute findings. SEGMENTATION: There are 5 lumbar-type vertebral bodies. There is no transitional anatomy at the lumb osacral junction. ALIGNMENT: No scoliotic curvature or spondylolisthesis. VERTEBRAE: Intact. BONE MARROW: Normal. DISC SIGNAL: The L4-L5 intervertebral disc is desiccated. POSTERIOR ELEMENTS: Intact. There is no pars interarticularis defect. HARDWARE: None in the spine. CORD AND CONUS: The conus medullaris terminates at the level of T12-L1 and it is normal in caliber an d signal intensity. SOFT TISSUES: No abnormality. L1-L2: No spinal or foraminal stenosis. L2-L3: No spinal or foraminal stenosis. L3-L4: Osteoarthrosis of the facet joints. There is no spinal or foraminal stenosis. L4-L5: Osteoarthrosis of the facet joints. There is no spinal or foraminal stenosis. L5-S1: No spinal or foraminal stenosis. LOWER THORACIC: No stenosis. SACRUM: Intact. OTHER: No other findings. IMPRESSION: Desiccation of the L4-L5 intervertebral disc space and osteoarthrosis of the L3-L4 and L 4-L5 facet joints. There is no spinal or foraminal stenosis. TECHNICAL DOCUMENTATION: JOB ID: [id number] [employer]- All Rights Reserved Reading location - IP/workstation name: [email or web address]
--- NOTE | 2019-07-16 10:43 | RADIOLOGY REPORT (SQ) ---
EXAM DESCRIPTION: MRI THORACIC SPINE WITHOUT COMPLETED DATE/TIME: 07/15/2019 9:55 pm REASON FOR STUDY: M51.36 OTHER INTERVERTEBRAL DISC DEGENERATION, LUMBAR REGION M51.36 OTHER INTERVE RTEBRAL DISC DEGENERATION, LUMBAR REGION COMPARISON: None. TECHNIQUE: Sagittal and Axial imaging includes T1, T2, STIR and gradient echo sequences. LIMITATIONS: None. FINDINGS: LOCALIZER: No worrisome findings. ALIGNMENT: Normal. VERTEBRAE: The thoracic vertebral body heights are preserved. There is no fracture. BONE MARROW: High T2/ low T1 signal in the anterior aspect of the superior endplate of the T9 vertebr al body could represent Modic type 1 endplate change. HARDWARE: None in the spine. CORD: Normal caliber and signal intensity. SOFT TISSUES: No abnormality. THORACIC DISCS T1-T12: No spinal or foraminal stenosis. LOWER CERVICAL: No stenosis. UPPER LUMBAR: No stenosis. OTHER: Anterolateral endplate osteophytes at T7-T8 and T8-T9. The T6-T7 intervertebral this is desic cated. IMPRESSION: 1. No spinal or foraminal stenosis. 2. Modic type 1 endplate changes at T8-T9. TECHNICAL DOCUMENTATION: JOB ID: [id number] [employer]- All Rights Reserved Reading location - IP/workstation name: [email or web address]
== END ==
LOC: RAD 19:53
PROVIDERS: ATTEND Nurse Practitioner Primary Care
DX: M51.36 Other intervertebral disc degeneration, lumbar region (principal)
CPT/HCPCS: 72146; 72148